=== PATIENT | female | born 1960 | race Caucasian/White ===

== ENCOUNTER 2024-12-05 12:50 | Day surgery (SDC) | payer BC, SELFPAY ==
[2024-12-03 09:11] VITALS: BMI 24.0
--- NOTE | 2024-12-03 16:53 | EXP.HP ---
History of Present Illness *Admission Date: 12/05/24 *Reason for visit:: Personal history of adenomatous colon polyp *History of present illness: Mrs. Shin is a 64-year-old female who is here for follow-up screening/surveillance colonoscopy. The patient did have a colonoscopy with me in October 2017 and had a single rectal polyp (tubular adenoma) removed. The examination is deemed medically necessary for screening/surveillance colonoscopy. The patient has been seen, interviewed and examined prior to the procedure by both myself and the anesthesia provider. [facility] Disclaimer: The information contained in this section may have been updated after the patient was seen, as this information can be updated by other users. Medical History Anxiety and depression Hyperlipemia Diabetes Hypertension Surgical History Colonoscopy planned Cholecystectomy planned Family History Other No significant family history Social History (Updated 12/05/24 @ 13:25 by Franc Quintanilla CRNA) Smoking Status: Never smoker alcohol intake: never substance use type: denies use current occupational status: retired Travel in the last 8 weeks?: None Have you lived/traveled outside [place] in past 30 days?: No Contact w/someone who lives/traveled outside [place] past 30 days?: No Exposure to someone with infectious disease in past 14 days?: No Do you have a fever (greater than 100.4 F or 38 C)?: No Have you tested positive for COVID-19?: No Exposed to someone with COVID-19 in past 14 days?: No Do you have a sore throat?: No Do you have a cough?: No Do you have any weakness?: No Are you experiencing any nausea/vomitting?: No Do you have any diarrhea?: No Are you experiencing any unusual bleeding?: No Do you have any muscle aches/pain?: No Do you have any abdominal pain?: No Are you experiencing loss of taste or smell?: No Review of Systems Review of Systems Review of systems (narrative): Negative *Cardiovascular Comments: Negative *Gastrointestinal Comments: Negative *Genitourinary Comments: Negative *Musculoskeletal Comments: Negative *Neurologic Comments: Negative Meds Home Medications and Allergies Home Medications ?Medication ?Instructions ?Recorded ?Confirmed ?Type losartan 25 mg tablet (Cozaar) 25 mg PO DAILY blood pressure 10/31/17 12/05/24 History venlafaxine 37.5 mg tablet 75 mg PO DAILY Depression 10/31/17 12/05/24 History atorvastatin 40 mg tablet 40 mg PO DAILY 12/03/24 12/05/24 History metformin 1,000 mg tablet 1,000 mg PO BID 12/03/24 12/05/24 History venlafaxine 100 mg tablet 100 mg PO DAILY 12/03/24 12/05/24 History New Prescriptions to Start Prescriptions: Allergies Allergy/AdvReac Type Severity Reaction Status Date / Time No Known Allergies Allergy Verified 12/05/24 13:08 Exam Data for Last 24 hours I & O for Last 24 hours: Intake & Output 11/30/24 12/01/24 12/02/24 12/03/24 23:59 23:59 23:59 23:59 Weight 140 lb *Routine HEENT Exam Head: Present normocephalic Eye: Present EOMI and PERRL ENT: Present mucous membranes moist *Routine Neck Exam Neck: Present supple *Routine Respiratory Exam Respiratory: Present CTA bilaterally *Routine Cardiovascular Exam Cardiovascular: Present RRR *Routine Abdominal Exam Abdominal: Present soft and normoactive bowel sounds; Absent tenderness *Routine Rectal Exam Rectal:: deferred *Routine Genitalia Exam Genitalia:: deferred *Routine Extremities Exam Extremities: Absent cyanosis, clubbing or edema *Routine Skin Exam Skin: Present warm; Absent rash *Routine Neurological Exam Neurological: Present alert and oriented X3 Assessment and Plan *Assessment and plan (1) Personal history of adenomatous and serrated colon polyps: Status: Acute Category: Medical Code(s): Z86.0101 - Personal history of adenomatous and serrated colon polyps (2) Screening for colon cancer: Status: Acute Category: Medical Code(s): Z12.11 - Encounter for screening for malignant neoplasm of colon Plan A/P: 1. Personal history of adenomatous colon polyps is the preprocedural diagnosis. The patient will be anesthetized/sedated using MAC sedation. The patient has been seen and examined. Cardiac and lung assessment prior to the examination is stable. Proceed with planned screening colonoscopy.
--- NOTE | 2024-12-05 13:05 | HMH.PROCNOTE ---
[facility] Procedure Note Date: 12/05/24 Time: 14:14 Procedure Note:: Colonoscopy Procedure Report: Colonoscopy with cold snare polypectomy Endoscopist: Alonso Barros II, MD Referring physician: Ary Rahman PA-C Date of Procedure: December 05, 2024 Equipment: Olympus [id number] adult colonoscope Sedation: MAC sedation Indication: Mrs. Shin is a 64-year-old female who is here for follow-up screening/surveillance colonoscopy. The patient did have a colonoscopy with [facility] in October 2017 and had a single rectal polyp (tubular adenoma) removed. The patient does report that her father had colon cancer at the age of 84. She reports no abdominal pain, weight loss, change in her bowel habits or rectal bleeding. The examination is deemed medically necessary for screening/surveillance colonoscopy. Procedure: Prior to the procedure, a history and physical exam was performed, and patient's medications and allergies were reviewed. The risks, benefits and alternatives of the sedation and procedure were discussed with the patient. All questions were answered and informed consent was obtained. The patient was brought to the procedure room. Patient identification and proposed procedure were verified by the physician and the nurse. The patient was placed in a left lateral decubitus position and the scope was passed under direct vision. Throughout the procedure, the patient's blood pressure, pulse, and oxygen saturations were monitored continuously. The colonoscopy was accomplished without difficulty. The patient tolerated the procedure well. Findings: On digital rectal examination there was normal rectal tone. There were no external hemorrhoids. The colonoscope was introduced through the anal canal to the rectum and advanced to the cecum. The ileocecal valve and appendiceal orifice were identified. The scope was advanced a short distance into the ileum which appeared grossly normal. The scope was then withdrawn into the colon. There were 2 colon polyps (transverse x 1 (4 mm) and sigmoid x 1 (4 mm)). Both of these were removed via cold snare polypectomy. The the remaining cecum, ascending, transverse, descending, sigmoid and rectum were grossly normal. There were no other mucosal abnormalities identified. Upon retroflexion within the rectum there were grade 1-2 internal hemorrhoids. The preparation was excellent throughout with Patterson Preparation Score of 9. The cecal time was 12 minutes. Impression: 1. Colonic polyps x 2 2. Grade 1-2 internal hemorrhoids Plan: I will follow-up the polyp histology and recommend repeat screening/surveillance colonoscopy again in 7 years. Those persons that constitute having a stronger family history of colorectal cancer are those with a first-degree relative (parent, sibling, or child) diagnosed with colon cancer when they were younger than 50, or if more than one first-degree relative is affected. It is in these persons, that we recommend surveillance colonoscopy every 5 years. Persons that have a first-degree family member greater than 60 years of age at the time of their diagnosis are not deemed to be at greater risk because most colon cancers are sporadic (environmental and other factors) and are not hereditary. Only about 5 to 10 percent of colon cancer is hereditary.
[2024-12-05] MEDS: LACTATED RINGERS 1000ML 1,000 ML 50 ML IV (13:07)
[2024-12-05 13:10] VITALS: BP 143/84; PULSE 91; RESP 18; TEMP 36.3; O2SAT 98
[2024-12-05 13:19] LABS: POC Glucose,Bedside 167 gm/dL (70-110)
--- NOTE | 2024-12-05 13:24 | EXP.ANES.CKL ---
[facility] Disclaimer: The information contained in this section may have been updated after the patient was seen, as this information can be updated by other users. Medical History Anxiety and depression Hyperlipemia Diabetes Hypertension Surgical History Colonoscopy planned Cholecystectomy planned Family History Other No significant family history Social History Smoking Status: Never smoker alcohol intake: never substance use type: denies use current occupational status: retired Travel in the last 8 weeks?: None [facility] Anesthesia Checklist Patient Identification Patient Identification: Arm Band Structural Data Admitted From: Home Planned Operative Procedure/s: Colonoscopy Consent for Planned Operative Procedure(s) Verified: Yes Verified Documents: Surgical Consent and History and Physical NPO Status Verified Time NPO: 10:30 Additional verifications Anesthesia Reactions: No Airway Assessment Mallampati Score:: Class II C-Spine Mobility Assessed: Yes TMJ Mobility Assessed: Yes Dentition: Good Dentition Neurological Assessment Level of Consciousness: Awake, Alert and Appropriate Anesthesia Plan Anesthesia Risk discussed: Yes Anesthesia Plan: Verified ASA Class: II Anesthesia Type: MAC
[2024-12-05 14:15] VITALS: BP 102/65; PULSE 79; RESP 18; TEMP 36.3; O2SAT 95
[2024-12-05 14:25] VITALS: BP 115/70; PULSE 73; O2SAT 98
[2024-12-05 14:35] VITALS: BP 119/76; PULSE 80; O2SAT 98
[2024-12-05 14:45] VITALS: BP 110/77; PULSE 76; TEMP 35.5; O2SAT 96
== END 2024-12-05 14:45 | disposition home or self-care (01) ==
PROVIDERS: PCP Nurse Practitioner; Visit Provider Internal Medicine Gastroenterology
PROC: 0DJD8ZZ Inspection of Lower Intestinal Tract, Via Natural or Artificial Opening Endoscopic (ICD-10-PCS; CPT 45378; principal; 2024-12-05 14:30)
DX: Z12.11 Encounter for screening for malignant neoplasm of colon (principal); D12.5 Benign neoplasm of sigmoid colon; D12.3 Benign neoplasm of transverse colon; K64.0 First degree hemorrhoids; K64.1 Second degree hemorrhoids; I10 Essential (primary) hypertension; E78.5 Hyperlipidemia, unspecified; E11.9 Type 2 diabetes mellitus without complications; F41.9 Anxiety disorder, unspecified; F32.A Depression, unspecified; Z79.84 Long term (current) use of oral hypoglycemic drugs; Z86.0101 Personal history of adenomatous and serrated colon polyps
CPT/HCPCS: 45385; 82962; J2003; J2704; J7120